=== PATIENT | female | born 2000 | race Caucasian/White ===

== ENCOUNTER 2018-06-01 11:41 | Emergency (ER) | END 2018-06-01 14:56 | disposition home or self-care (01) ==

== ENCOUNTER 2018-06-03 17:53 | Emergency (ER) | END 2018-06-03 20:05 | disposition home or self-care (01) ==

== ENCOUNTER 2018-08-19 18:25 | Emergency (ER) | payer OTHER ==
[~2018-08-19] VITALS: Wt 59.1 kg
[~2018-08-19 18:25] MED LIST: ASPI-826 PO; FLUT9.9S NASAL; IBUP-1542 PO; SODI126M NASAL
[2018-08-19] MEDS ORDERED: KETOROLAC 30 MG INJ IV STA (20:42)
[2018-08-19] MEDS ORDERED: ONDANSETRON 4 MG INJ IV STA (20:42)
--- NOTE | 2018-08-19 20:48 | ERD ---
ER Documentation Chief Complaint Chief Complaint migraine BENNETT persistent since May; no relief w 600motrin dose HPI Patient is a 18-year-old female with history of seasonal allergies who presents to the ED with intermittent headache for the past 3 months. Patient was initially seen here in May of last year for same complaints. She was treated with ibuprofen, fluticasone, and nasal spray. Pain is mostly localized to her parietal scalp but also periorbital and behind her nasal bridge. She also reports associated nasal congestion and rhinorrhea. She states headache is pressure-like, 8 out of 10 intensity and not improve with the medications. She reports intermittent photophobia and phonophobia and nausea. No fevers, no neck pain, neck stiffness. No vomiting. No numbness, tingling, focal weakness of her extremities. She is worried about a tumor and is requesting a CT of the head. ROS All systems reviewed and are negative except as per history of present illness. Medications Home Meds Active Scripts Sodium Chloride (Saline Nasal Mist) 126 Ml Mist, 1 SPRAY NASAL Q4 PRN for NASAL CONGESTION for 7 Days, BOTTLE Prov:WESLEYIGRSHEELAANANALIAUR N PA-C 08/19/18 Fluticasone Propionate (Flonase Allergy Relief) 9.9 Ml [place].susp, 1 SPRAY NASAL BID, #1 BOTTLE TO EACH NOSTRIL Prov:ANALIA NORMANUR N PA-C 08/19/18 Sumatriptan Succinate* (Sumatriptan Succinate*) 25 Mg Tablet, 25 MG PO BID PRN for MIGRAINE HEADACHE, #14 TAB May repeat after 2 hours if needed; MAX 200 mg/24 hours Prov:WESLEYIGRSHEELAANELISABETHPYUR N PA-C 08/19/18 Amoxicillin/Potassium Clav (Amox-Clav 875-125 mg Tablet) 875-125 mg Tab, 1 TAB PO BID for 7 Days, #14 TAB Prov:WESLEYIGRIKIANELISABETHPYUR N PA-C 08/19/18 Fluticasone Propionate (Flonase Allergy Relief) 9.9 Ml [place].susp, 1 SPRAY NASAL DAILY, #1 BOTTLE TO EACH NOSTRIL Prov:KAYY BLISS [employer] SUPERVISOR 06/03/18 Sodium Chloride (Saline Nasal Mist) 126 Ml Mist, 2 SPRAY NASAL Q2H PRN for NASAL CONGESTION, #1 BOTTLE Prov:KAYY BLISS. [employer] SERVICES SUPERVISOR 06/03/18 Aspirin/Acetaminophen/Caffeine (Excedrin Extra Strength Caplet) 1 Each Tablet, 1 EACH PO Q6, #20 TAB Prov:KAYY BLISS [employer] SUPERVISOR 06/03/18 Ibuprofen* (Ibuprofen*) 600 Mg Tablet, 600 MG PO Q6H PRN for HEADACHE, #30 TAB Prov:JAMIE CAMARA DO 06/01/18 Allergies Allergies: Coded Allergies: No Known Allergy (Unverified , 08/19/18) PMhx/Soc History of Surgery: No Anesthesia Reaction: No Hx Neurological Disorder: No Hx Respiratory Disorders: No Hx Cardiac Disorders: No Hx Psychiatric Problems: Yes (Anxiety, panic attackes Hx of 5150, depression) Hx Miscellaneous Medical Probl: No Hx Alcohol Use: Yes Hx Substance Use: Yes (Marijuana) Hx Tobacco Use: No Smoking Status: Never smoker FmHx Family History: No diabetes Physical Exam Vitals Vital Signs Date Temp Pulse Resp B/P (MAP) Pulse Ox O2 O2 Flow FiO2 Time Delivery Rate 08/19/18 98.5 60 20 116/79 99 Room Air 23:19 (91) 08/19/18 99.3 78 22 133/87 99 18:40 (102) Physical Exam Const: No acute distress Head: Atraumatic Eyes: Normal Conjunctiva ENT: Normal External Ears, Nose and Mouth. + Moderate maxillary and frontal sinus tenderness to palpation. Clear bilateral nasal discharge. Neck: Full range of motion. No meningismus. Resp: Clear to auscultation bilaterally Cardio: Regular rate and rhythm, no murmurs Abd: Soft, non tender, non distended. Normal bowel sounds Skin: No petechiae or rashes Ext: No cyanosis, or edema Neuro: M/S: Alert and oriented Face: EOMI, face and pharynx with normal sensation and function Motor: Normal strength throughout Sensation: Normal sensation throughout Speech: Normal Cerebel: Normal coordination Normal gait Normal finger to nose DTR: 2+ and symmetric upper/lower extremities Psych: Normal Mood and Affect Results 24 hrs Laboratory Tests Test 08/19/18 20:57 POC Beta HCG, Qualitative NEGATIVE Current Medications Medications Dose Sig/Carroll Start Time Status Last (Trade) Ordered Route PRN Stop Time Admin Dose Reason Admin Ondansetron 4 mg ONCE STAT 08/19/18 DC 08/19/18 HCl (Zofran IV 20:42 08/19/18 21:05 Inj) 20:44 Ketorolac 30 mg ONCE STAT 08/19/18 DC 08/19/18 Tromethamine IV 20:42 08/19/18 21:05 (Toradol) 20:44 Sumatriptan 25 mg ONCE STAT 08/19/18 DC 08/19/18 Succinate PO 22:23 08/19/18 23:07 (Imitrex) 22:25 Procedures/MDM EMERGENT LABS AND DIAGNOSTIC STUDIES: Radiology Results as interpreted by Radiology: PROCEDURE: CT Head Without Intravenous Contrast CLINICAL INDICATION: Worsening headache. TECHNIQUE: Axial computed tomography images of the head/brain without intravenous contrast. Sagittal and coronal reformatted images were created and reviewed. CTDIvol (mGy) = 39.64; total DLP (mGy-cm) = 634.23. This CT exam was performed using one or more of the following dose reduction techniques: automated exposure control, adjustment of the mA and/or kV according to patient size, and/or use of iterative reconstruction technique. DICOM images are available. COMPARISON: None FINDINGS: BRAIN: Unremarkable. No hemorrhage. No significant white matter disease. No edema. VENTRICLES: Unremarkable. No ventriculomegaly. BONES/JOINTS: Unremarkable. No acute fracture. SOFT TISSUES: Unremarkable. SINUSES: Unremarkable as visualized. No acute sinusitis. MASTOID AIR CELLS: Unremarkable as visualized. No mastoid effusion. IMPRESSION: Unremarkable noncontrast CT scan of the head. Nursing Notes Reviewed. Previous Medical Records requested via the Electronic Health Record. EMERGENCY DEPARTMENT COURSE / MEDICAL DECISION MAKIN yo F presenting with headache for the second time in 3 months. Pt has no focal neurological deficits on physical exam. CT of the head was obtained per request of the patient and normal. No evidence of subarachnoid hemorrhage, IC mass, epidural/subdural hematoma or CVA. I have low clinical suspicion for encephalitis or meningitis. History and physical and is most consistent with a sinus headache versus migraine headache.. Headache improved status post IV Toradol Sumitrax and Zofran. At this point, pt is stable for outpatient followup and management. I will prescribe Augmentin given duration of pt's symptoms. I also prescribed Sumitriptan and refilled her Flonase and Saline mist. She has an appointment to see her PCP on August 24, 2018. I recommend she obtain a referral to a neurologist or ENT for further management of her migraine/sinus headaches. Strict return precautions given. Prescriptions: Flonase, saline mist, Augmentin, Sumatriptan SPECIALIST FOLLOW UP RECOMMENDED: Neurologist, ENT Patient has been advised to follow up with primary care in 1-2 days. Departure Diagnosis: Primary Impression: Sinusitis Sinusitis location: maxillary Chronicity: subacute Qualified Codes: J01.00 - Acute maxillary sinusitis, unspecified Additional Impression: Migraine headache Migraine type: without aura Status migrainosus presence: without status migrainosus Intractability: not intractable Qualified Codes: G43.009 - Migraine without aura, not intractable, without status migrainosus Condition: Stable Patient Instructions: Acute Sinusitis, Migraine Headache: Stages and Treatment, Sinus Headache Referrals: DEBI GALINDO MD, CHAD M. MD Additional Instructions: CT head normal. Recommend following up with PCP for referral to a neurologist. Strict return precautions given. DOT NORMAN PA-C Aug 19, 2018 20:48
[2018-08-19] MEDS ORDERED: SUMATRIPTAN 25 MG TAB PO STA (22:23)
[2018-08-19] MEDS ORDERED: SODI126M NASAL (22:55)
[2018-08-19] MEDS ORDERED: FLUT9.9S NASAL (22:55)
[2018-08-19] MEDS ORDERED: SUMA25TA3 PO (22:55)
[2018-08-19] MEDS ORDERED: AMOX1TAB10 PO (22:55)
[2018-08-19 23:19] VITALS: BP 116/79; PULSE 60; RESP 20
== END 2018-08-19 23:20 | disposition home or self-care (01) ==
LOC: FTE 18:25
DX: J01.00 Acute maxillary sinusitis, unspecified (principal); G43.009 Migraine without aura, not intractable, without status migrainosus
CPT/HCPCS: 70450; 81025; 96374; 96375; J1885; J2405; Z7502; Z7610